=== PATIENT | female | born 1975 | race Caucasian/White ===

== ENCOUNTER → 2017-06-25 | Outpatient (CLI) | payer BC ==
--- NOTE | 2017-06-25 15:51 | MAMMOGRAPHY REPORT ---
BILATERAL DIGITAL SCREENING MAMMOGRAM TOMOSYNTHESIS WITH CAD: 06/25/2017 CLINICAL HISTORY: Routine screening. Patient has no complaints. TECHNIQUE: Breast tomosynthesis in addition to standard 2D mammography was performed. Current study was also evaluated with a Computer Aided Detection (CAD) system. COMPARISON: Comparison is made to exams dated: 03/15/2016 mammogram, 03/12/2015 mammogram, and 2013 mammogram - [facility]. BREAST COMPOSITION: The tissue of both breasts is heterogeneously dense, which may obscure small mas ses. FINDINGS: No suspicious masses, calcifications, or areas of architectural distortion are noted in ei ther breast. There has been no significant interval change compared to prior exams. IMPRESSION: ACR BI-RADS CATEGORY 1: NEGATIVE There is no mammographic evidence of malignancy. A 1 year screening mammogram is recommended. The pa tient will receive written notification of the results. Approximately 10% of breast cancers are not detected with mammography. A negative mammographic report should not delay biopsy if a clinically suggestive mass is present. Kerri Nicolas M.D. ah/:06/25/2017 14:14:23 Certified Nurse: Estefania KING(R)(M), [facility] letter sent: Normal 1/2 BI-RADS Code: ACR BI-RADS Category 1: Negative
== END | disposition home or self-care (01) ==
LOC: C.MAMM 08:51
PROVIDERS: ATTEND Nurse Practitioner Obstetrics & Gynecology
DX: Z12.31 Encounter for screening mammogram for malignant neoplasm of breast (principal)

== ENCOUNTER 2024-10-02 08:45 | Inpatient (IN) ==
[2024-10-02] MEDS: SODIUM CHLORIDE 0.9% 1,000 ML IV ONE (09:44)
[2024-10-02] MEDS: ONDANSETRON INJ 2 MG/ML 2 ML VIAL IV STA (09:45)
[2024-10-02 09:48] LABS: Hematocrit (blood only) 52.4 % (37.0-47.0); Hemoglobin 18.3 g/dl (12.0-16.0); Mean Corpuscular Hemoglobin 29.9 pg (25.0-34.0); Mean Corpuscular Hgb Conc 34.9 g/dL (32.0-36.0); Mean Corpuscular Volume 85.5 fL (80.0-100.0); Mean Platelet Volume 9.1 fL (9.4-12.4); Platelet Count 533 K/uL (130-400); RDW Coefficient of Variation 12.4 % (11.5-14.5); RDW Standard Deviation 38.1 fL (36.4-46.3); Red Blood Count 6.13 M/uL (4.20-5.40)
[2024-10-02] MEDS: MoRPHine SULFATE 4 MG/ML 1 ML CARP\\VIAL IV STA (09:52)
[2024-10-02] MEDS: FAMOTIDINE 20MG IV PUSH 20 MG/5 ML SYR IV STA (09:54)
[2024-10-02] MEDS: ACETAMINOPHEN 1,000 MG/100 ML VIAL IV STA (09:55)
[2024-10-02 10:17] LABS: Albumin Globulin Ratio 1.4 (0.9-2); BUN Creatinine Ratio 13.8 (10-20); Bilirubin,Total 0.9 mg/dl (0.2-1.0); Calcium 11.4 mg/dl (8.6-10.3); Creatinine Clr Calc Pharmacy 53.4 ml/min; Globulin 3.7 gm/dl (2.5-4.0); Potassium 4.2 mmol/L (3.5-5.1); Total Protein 8.7 gm/dl (6.0-8.3)
[2024-10-02] MEDS: OPTIRAY 320 100ml IV ONE (10:39)
--- NOTE | 2024-10-02 10:54 | CT Scan Report ---
CT SCAN OF THE ABDOMEN AND PELVIS WITH IV CONTRAST CLINICAL HISTORY: Abdominal pain, nausea and vomiting. COMPARISON STUDY: None. TECHNIQUE: Following the IV administration of 94 cc of Optiray 320, CT scan of the abdomen and pelvi s is performed from the lung bases to the proximal femora. Images are reviewed in the axial, sagittal , and coronal planes. IV contrast was administered without complication. A dose lowering technique wa s utilized adhering to the principles of ALARA. CT DOSE: 1012.15 mGy.cm FINDINGS: Lung bases: The size of the heart is normal. There is no pericardial effusion. The lung bases are angie ar. Liver: The liver morphology is normal and there are no hepatic lesions. There is mild biliary ductal dilatation likely related to cholecystectomy. The hepatic veins and portal veins are patent. Gallbladder: Surgically absent. Spleen: Normal in size and attenuation. Pancreas: There are no pancreatic lesions. No pancreatic ductal dilatation is present. Adrenal glands: Unremarkable. Kidneys: There are no renal lesions. There is no hydronephrosis. The kidneys enhance symmetrically. Abdominal vasculature: The caliber of the abdominal aorta is normal. Major vasculature is patent. Bowel: There are numerous loops of mildly dilated fluid-filled small bowel. Transition point within t he distal ileum, within the left lower quadrant on image 224 of 365 is noted. There is associated mes enteric stranding and a small amount of associated interloop fluid and ascites. Terminal ileum is dec ompressed. There is multifocal wall thickening with prominent mucosal enhancement within the terminal ileum. No evidence for acute appendicitis. Peritoneum: There is no intraperitoneal free air. Lymphadenopathy: None. Skeletal structures: No lytic or blastic lesions are seen. IMPRESSION: Findings consistent with a small bowel obstruction with transition point within the dista l ileum, as described above. Associated mesenteric stranding and ascites. No free air, pneumatosis or portal venous gas. Multifocal wall thickening with prominent mucosal enhancement within the terminal ileum. Although possibly due to underdistended bowel distal to the transition point, this favors a n onspecific enteritis. ACT 112: Negative or not required by law. Electronically signed by: Gilberto Valdez M.D. 10/02/2024 10:52 AM
[2024-10-02 11:47] LABS: Basophils # (auto) 0.09 K/uL (0.00-0.20); Basophils % (auto) 0.3 %; Eosinophils # (auto) 0.03 K/uL (0.00-0.50); Eosinophils % (auto) 0.1 %; Immature Granulocytes # (auto) 0.15 K/uL (0.01-0.20); Immature Granulocytes % (auto) 0.6 %; Lymphocytes # (auto) 2.77 K/uL (1.20-3.40); Lymphocytes % (auto) 10.6 %; Monocytes # (auto) 1.29 K/uL (0.11-0.59); Monocytes % (auto) 4.9 %; Neutrophils # (auto) 21.87 K/uL (1.40-6.50); Neutrophils % (auto) 83.5 %
[2024-10-02] MEDS ORDERED: MoRPHine SULFATE 4 MG/ML 1 ML CARP\\VIAL IV PRN ×2 (11:57→14:15)
--- NOTE | 2024-10-02 12:00 | Emergency Department Note ---
Impression & Plan Abdominal pain, Small bowel obstruction, Nausea & vomiting ED Provider Note ED Provider Note NAME: PUNEET STACK AGE:48 SEX: Female : 1975 ARRIVES VIA: Private vehicle INFORMANT: Patient ED PROVIDER(s): Berta Evans DO CHIEF COMPLAINT: Abdominal pain, vomiting HPI: This is a 48-year-old female who presents to the emergency department due to concern for abdominal pain and nausea and vomiting. She states pain began around 1 AM and woke her up from sleep. She states she would have a baseline dull pain with intermittent spasms every 3 to 4 minutes of a sharper pain. She began having nausea and then episodes of vomiting additionally. She has had sweating and chills with the vomiting no overt fevers. She denies any recent change in diet or medication. She does have a prior history of a bowel obstruction and states this feels similar. She denies any accompanying chest pain or shortness of breath. No recent change in urine or stools. She states she feels bloated. PAST MEDICAL HISTORY:See Below PAST SURGICAL HISTORY:See Below FAMILY HISTORY:See Below SOCIAL HISTORY:See Below HOME MEDICATIONS:See Below ALLERGIES:See Below VITALS:See Below PHYSICAL EXAMINATION: GENERAL: alert, well appearing, well nourished, no distress, non-toxic EYE EXAM: normal conjunctiva, PERRL and EOM's grossly intact OROPHARYNX: no exudate, no erythema, lips, buccal mucosa, and tongue normal and mucous membranes are moist NECK: supple, no nuchal rigidity, no adenopathy, non-tender LUNGS: Clear to auscultation. Normal chest wall mechanics, no w/r/r HEART: no murmurs, S1 normal and S2 normal ABDOMEN: abdomen soft, non-tender, normo-active bowel sounds, no masses, no rebound or guarding. SKIN: no rashes, petechiae, orbruising UPPER EXTREMITIES: upper extremities are grossly normal. FROM, nml pulses b/l. LOWER EXTREMITIES: No pitting edema. FROM, nml pulses b/l. NEURO EXAM: Normal sensorium, cranial nerves II-XII grossly intact, normal speech, no facial droop,nogross weakness of arms, no gross weakness of legs. Gross sensation intact. No ataxia. Vital Signs: reviewed and remarkable Differential Diagnosis: sbo, perf, gi bleed, colitis, viral syndrome, ureterolithiasis, gastritis, AAA, ACS, diverticulitis, as well as others were considered MEDICAL DECISION MAKING: This is a 48-year-old female who presents emergency department due to concern for abdominal pain, nausea and vomiting. Patient reported symptoms feel similar to her prior bowel obstruction. She was afebrile and hemodynamically stable. Labs drawn and sent, IV established, patient monitored on telemetry. She was started on IV fluids and given IV Tylenol, IV Zofran, and IV morphine for symptomatic control. She was sent for CT of the abdomen pelvis which did confirm small bowel obstruction with transition point in the left lower quadrant. Patient markedly improved following medications and all results discussed with her at bedside. I discussed the case with on-call general surgery via [facility] text [facility] and [facility]. Consultation(s): 1208: [facility] Pol[facility] for additional [facility] and management. 1210: Discussed with general surgery via [facility]ert text, consult placed. ER Treatment Provided: See below Diagnostics Interpreted By Me: -Cardiac Monitoring: An order was placed for continuous cardiac monitoring. The monitor shows a rate of 58 with sinus bradycardia rhythm. -Laboratory studies: As stated above and show below. -Imaging studies: CT a/p - +sbo, no perf Triage Nursing Note Reviewed Prior/Outside Records Reviewed Past Med/Surg History Problem List (Updated 10/02/24 @ 11:59 by Berta Evans DO) Nausea & vomiting (Acute) Small bowel obstruction (Acute) Abdominal pain (Acute) Breast cancer screening other than mammogram Family history of breast cancer Heterogeneously dense tissue of both breasts on mammography Hyperhidrosis History of small bowel obstruction History of cyst of breast Medical History History of intestinal obstruction History of COVID-19 Surgical History Family history of reaction to anesthesia Nausea and vomiting after administration of anesthetic agent History of endometrial ablation History of bilateral tubal ligation History of cholecystectomy History of tooth extraction Family History Grandmother (Maternal) Diabetes Dementia Mother Dementia Grandfather (Maternal) Alzheimer disease Other Breast cancer Denies family history of Ovarian cancer Prostate cancer Myocardial infarction Colorectal cancer Social History Smoking Status: Never smoker Second Hand Exposure: Yes (IN THE PAST A CHILD); Do You Dip or Chew Tobacco: No; Hx Alcohol Use: Yes Alcohol type: beer and wine Hx Substance Use: No Preferred Language: Armenian Communication Ability: Effective Cash Applications Clerk Required: No Beliefs That Will Affect Care: None marital status: Current Living Situation: Spouse current occupational status: employed 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 [employer] Feels Safe at Home: Yes Childhood Exposure to Second-Hand Smoke: Yes Dental Care, Regularly: Yes Physical Activity Frequency: 3-4 Times per Week Seatbelt Use: always Sunscreen Use: Yes Assistive Devices: None Allergies Allergies Allergy/AdvReac Type Severity Reaction Status Date / Time adhesive tape AdvReac Mild SKIN Verified 07/09/24 13:47 REACTION codeine AdvReac Mild N/V Verified 07/09/24 13:47 Home Meds Home Medications Medication Instructions Recorded Confirmed multivitamin 1 tab PO 3XWK 06/29/22 10/02/24 Previous Rx's Medication Instructions Recorded aluminum chloride 20 % topical 1 applic topical DAILY #37.5 mL 05/16/23 solution (Drysol) drospirenone (contraceptive) 4 mg 1 tab PO QAM #84 tabs 07/09/24 (28) tablet (Slynd) Results & Data (ED) Vital Signs Vital Signs - 24 hr 10/02/24 08:55 10/02/24 09:15 10/02/24 09:59 Temperature 36.0 C L Temperature Source Temporal Artery Scan Pulse Rate 110 H 96 H Pulse Rate [Right Finger] 80 Respiratory Rate 20 18 Respiratory Effort / Characteristics Non-Labored Spontaneous Non-Labored Spontaneous Respiratory Depth Normal Normal Respiratory Pattern Regular Regular Blood Pressure 125/85 Blood Pressure [Right Arm] 147/91 H Blood Pressure Mean 98 Blood Pressure Mean [Right Arm] 109 Pulse Oximetry 99 95 Oxygen Delivery Method Room Air Room Air Sepsis Recent Fever Within 48 Hours No Sepsis New/Unexplained Change in Mental Status N/A Sepsis Action Taken by Nursing No Action Required Laboratory Data 10/03/24 07:23 10/03/24 07:23 Lab Results 10/02/24 Range/Units 09:10 WBC 26.20 H (4.8-10.8) K/ul RBC 6.13 H (4.20-5.40) M/uL Hgb 18.3 H (12.0-16.0) g/dl Hct 52.4 H (37.0-47.0) % MCV 85.5 (80.0-100.0) fL MCH 29.9 (25.0-34.0) pg MCHC 34.9 (32.0-36.0) g/dL RDW Std Deviation 38.1 (36.4-46.3) fL RDW Coeff of Priyank 12.4 (11.5-14.5) % Plt Count 533 H (130-400) K/uL MPV 9.1 L (9.4-12.4) fL Immature Gran % (Auto) 0.6 % Neut % (Auto) 83.5 % Lymph % (Auto) 10.6 % Motley % (Auto) 4.9 % Eos % (Auto) 0.1 % Baso % (Auto) 0.3 % Neut # (Auto) 21.87 H (1.40-6.50) K/uL Lymph # (Auto) 2.77 (1.20-3.40) K/uL Motley # (Auto) 1.29 H (0.11-0.59) K/uL Eos # (Auto) 0.03 (0.00-0.50) K/uL Baso # (Auto) 0.09 (0.00-0.20) K/uL Immature Gran # (Auto) 0.15 (0.01-0.20) K/uL Sodium 139 (136-145) mmol/L Potassium 4.2 (3.5-5.1) mmol/L Chloride 99 (98-107) mmol/L Carbon Dioxide 27 (21-32) mmol/L Anion Gap 13 H (3-11) BUN 15 (6-23) mg/dl Creatinine 1.09 (0.6-1.2) mg/dl Est Cr Clr Drug Dosing 53.4 ml/min eGFR 61.89 BUN/Creatinine Ratio 13.8 (10-20) Glucose 174 H (70-99(Fasting)) mg/dl Calcium 11.4 H (8.6-10.3) mg/dl Total Bilirubin 0.9 (0.2-1.0) mg/dl AST 28 (13-39) U/L ALT 25 (7-52) U/L Alkaline Phosphatase 98 (34-104) U/L Total Protein 8.7 H (6.0-8.3) gm/dl Albumin 5.0 (3.4-5.0) gm/dl Globulin 3.7 (2.5-4.0) gm/dl Albumin/Globulin Ratio 1.4 (0.9-2) Lipase 18 (11-82) U/L Administered Medications Enoxaparin Sodium (Enoxaparin Inj 40 Mg/0.4 Ml Syr) 40 mg SQ Q24H [facility] Stop: 11/01/24 14:29 Last Admin: 10/03/24 16:10 Dose: 40 mg Documented By: Admin: 10/02/24 16:52 Dose: 40 mg Documented By: KATT Lactated Ringer's (Lr) 1,000 mls @ 80 mls/hr IV .[id number] [facility] Stop: 10/05/24 12:59 Last Admin: 10/03/24 11:52 Dose: 125 mls/hr Documented By: Infusion: 10/03/24 11:45 Dose: Infused Documented By: Admin: 10/03/24 03:45 Dose: 125 mls/hr Documented By: Infusion: 10/03/24 03:30 Dose: Infused Documented By: Admin: 10/02/24 19:30 Dose: 125 mls/hr Documented By: Infusion: 10/02/24 19:30 Dose: Infused Documented By: Admin: 10/02/24 13:05 Dose: 125 mls/hr Documented By: Acetaminophen (Ofirmev) 1,000 mg in 100 mls @ 400 mls/hr IV Q8H PRN PRN Reason: pain/fever, first line Stop: 10/05/24 16:59 Last Infusion: 10/03/24 08:06 Dose: Infused Documented By: Admin: 10/03/24 07:25 Dose: 400 mls/hr Documented By: Infusion: 10/02/24 21:03 Dose: Infused Documented By: Admin: 10/02/24 19:30 Dose: 400 mls/hr Documented By: JOEL Discontinued Medications Sodium Chloride (Nss) 1,000 mls @ 999 mls/hr IV .Q1H1M ONE Stop: 10/02/24 10:35 Last Infusion: 10/02/24 12:08 Dose: Infused Documented By: Admin: 10/02/24 09:44 Dose: 999 mls/hr Documented By: MR Famotidine (Pepcid 20mg Iv Push) 20 mg in 5 mls @ 2.5 mls/min IV NOW STA Stop: 10/02/24 09:36 Last Admin: 10/02/24 09:54 Dose: 2.5 mls/min Documented By: MR Acetaminophen (Ofirmev) 1,000 mg in 100 mls @ 400 mls/hr IV NOW STA Stop: 10/02/24 09:49 Last Infusion: 10/02/24 10:43 Dose: Infused Documented By: Admin: 10/02/24 09:55 Dose: 400 mls/hr Documented By: MR Sodium Chloride (Nss) 1,000 mls @ 125 mls/hr IV .Q8H [facility]ANNA[facility] Stop: 10/05/24 11:29 Last Infusion: 10/02/24 12:58 Dose: Infused Documented By: Admin: 10/02/24 12:37 Dose: 125 mls/hr Documented By: Ioversol (Optiray 320 100ml) 94 ml IV ONCE ONE Stop: 10/02/24 10:39 Last Admin: 10/02/24 10:39 Dose: 94 ml Documented By: SELMA Morphine Sulfate (Morphine Sulfate 4 Mg/Ml 1 Ml Carp\Vial) 4 mg IV NOW STA Stop: 10/02/24 09:36 Last Admin: 10/02/24 09:52 Dose: 4 mg Documented By: Ondansetron HCl (Ondansetron Inj 2 Mg/Ml 2 Ml Vial) 4 mg IV NOW STA Stop: 10/02/24 09:36 Last Admin: 10/02/24 09:45 Dose: 4 mg Documented By: MR Imaging Data Radiologist's Impression: Abdomen/Pelvis CT 10/02/24 09:35 CT SCAN OF THE ABDOMEN AND PELVIS WITH IV CONTRAST CLINICAL HISTORY: Abdominal pain, nausea and vomiting. COMPARISON STUDY: None. TECHNIQUE: Following the IV administration of 94 cc of Optiray 320, CT scan of the abdomen and pelvis is performed from the lung bases to the proximal femora. Images are reviewed in the axial, sagittal, and coronal planes. IV contrast was administered without complication. A dose lowering technique was utilized adhering to the principles of ALARA. CT DOSE: 1012.15 mGy.cm FINDINGS: Lung bases: The size of the heart is normal. There is no pericardial effusion. The lung bases are clear. Liver: The liver morphology is normal and there are no hepatic lesions. There is mild biliary ductal dilatation likely related to cholecystectomy. The hepatic veins and portal veins are patent. Gallbladder: Surgically absent. Spleen: Normal in size and attenuation. Pancreas: There are no pancreatic lesions. No pancreatic ductal dilatation is present. Adrenal glands: Unremarkable. Kidneys: There are no renal lesions. There is no hydronephrosis. The kidneys enhance symmetrically. Abdominal vasculature: The caliber of the abdominal aorta is normal. Major vasculature is patent. Bowel: There are numerous loops of mildly dilated fluid-filled small bowel. Transition point within the distal ileum, within the left lower quadrant on image 224 of 365 is noted. There is associated mesenteric stranding and a small amount of associated interloop fluid and ascites. Terminal ileum is decompressed. There is multifocal wall thickening with prominent mucosal enhancement within the terminal ileum. No evidence for acute appendicitis. Peritoneum: There is no intraperitoneal free air. Lymphadenopathy: None. Skeletal structures: No lytic or blastic lesions are seen. IMPRESSION: Findings consistent with a small bowel obstruction with transition point within the distal ileum, as described above. Associated mesenteric stranding and ascites. No free air, pneumatosis or portal venous gas. Multifocal wall thickening with prominent mucosal enhancement within the terminal ileum. Although possibly due to underdistended bowel distal to the transition point, this favors a nonspecific enteritis. ACT 112: Negative or not required by law. Electronically signed by: Gilberto Valdez M.D. 10/02/2024 10:52 AM Discharge Plan Visit Data Chief Complaint: Abdominal Pain Stated Complaint: BILE (BOWEL) OBSTRUCTION, VOMITING ED Provider: Berta Evans Discharge Problem: Abdominal pain, Small bowel obstruction, Nausea & vomiting Patient Disposition: Admitted As Inpatient Condition: Fair Discharge Instructions Interventions: ED Discharge Assessment Last Done: 10/02/24 13:59
--- NOTE | 2024-10-02 12:20 | History & Physical Report ---
Date of Service October 02, 2024 Assessment & Plan (1) Small bowel obstruction: Plan: 48-year-old female the past medical history of cholecystectomy and tubal ligation and multiple episodes of SBO who presents with recurrent nausea/vomiting/abdominal pain identical to prior bowel obstructions. She is found to have an SBO with transition point on CT. Is admitted for medical management of SBO with surgical consultation. SBO CTA/P: SBO with transition point. No evidence of perforation/abscess/free air. Enteritis versus bowel decompression distal to transition point Suspect adhesional with history of cholecystectomy and tubal ligation At bedside bowel sounds are near absent/diminished. Pain/nausea improved with initial ER medications. Remains with some discomfort but nausea has resolved. No rigidity/guarding Stomach is not overly distended. Did discuss NGT to LIS. Prefers to defer for now however if she has any recurrent nausea/vomiting agrees to placing NGT to low intermittent suction Continue Zofran, Tylenol IV, scale morphine for breakthrough pain IV FM while NPO Surgery consulted Marked leukocytosis of 26.2 however this has no granulocytic left shift, she is afebrile, and has not felt sick prior to her symptoms consistent with prior SBO's which developed last night. She has had multiple episodes of vomiting, suspect that this is demargination. Follow fever curve. If deteriorating clinical status then can start Zosyn at that point. Dysmenorrhea S/p endometrial ablation 8 years ago. Is on drospirenone for bleeding suppression, has had spotting when this has been missed Currently n.p.o. Hold Slynd while n.p.o. DVT prophylaxis: Lovenox Disposition: MSO CODE STATUS: Full code Diet: N.p.o., IV FM (2) Nausea & vomiting: History of Present Illness Primary Care Provider: Kaylah Villa DO Jasmyne is a 48-year-old female with a past medical history of SBO, tubal ligation, cholecystectomy, endometrial ablation, hyperhidrosis who presents to the ER with abdominal pain/nausea/vomiting beginning evening prior. Symptoms feel similar to her prior bowel obstructions. On ER evaluation CTA/P shows small bowel obstruction with transition point within the distal ileum, associated mesenteric stranding and ascites, no free air/pneumatosis/portal gas noted. Multifocal wall thickening and enhancement of the terminal ileum which may represent enteritis versus under distended distal bowel. Marked leukocytosis of 26 with neutrophilic predominance but no granulocytic left shift. No KORI is present. Has a history of colonoscopy 06/2022 which showed nonbleeding internal hemorrhoids, no other abnormalities. Jasmyne reports she is here for a recurrent bowel obstruction She knew right away what is was after dinner and felt 'just too full' lik ewith prior obstructions. [place] very full overnight, with a harder belly than normal and 2-3 pain with intermitting waves of 23/10 pain once and a while. Went to be d, but continued to have pain, nausea overnight. Got up out of bed 1-3am due to symptoms and felt poorly. Started vomiting at 6am, threw up 3 times at home, once in the car, once in the triage office, and once here. Feels much better since getting morphine, fluids, and zofran. Feels identical to past SBOs. Last one was a year or two ago in November and was able to ride it out at home with NPO --> fluids without coming to the hospital. year prior to that did need to be hospitalized for symptoms identical to this which took 3 day sto resolve. Has had some 'lesser waves' many times where she feels full for a prolonged period, but passes with rest at home. Has not noticed any particular triggers. First SBO was even prior her her cholecystectomy Had a cholecystectomy in 2013, but she thinks she may have had SBO sx prior to this. Had had a hx of tubal ligation in 1997. No history of bowel surgery. No diarrhea/illness prior ot this Last gas/flatus last night Last DM was very small 5/8 2am, last normal BM yesterday morning. No blood/melena. Denies other medical problems. - Takes drosperinone. Takes other medicals No hx of FL, no hx CKD, no history DM, no history of gestational DM, no hx strokes or blood clots Medical History: Reviewed Medications: Reviewed Surgical History: Reviewed Family history: Reviewed Allergies: Reviewed. Allergic to codeine --> nausea. NKDA. Social History: No tobacco product use. ETOH rare social use. Code Status: Parker Luevano [phone] would be surrogate DM. Full Code BS Diminished. Umbilical TTP, epigastric . Allergies Allergy/AdvReac Type Severity Reaction Status Date / Time adhesive tape AdvReac Mild SKIN Verified 07/09/24 13:47 REACTION codeine AdvReac Mild N/V Verified 07/09/24 13:47 Home Medications Medication Instructions Recorded Confirmed Type multivitamin 1 tab PO 3XWK 06/29/22 10/02/24 History aluminum chloride 20 % topical 1 applic topical DAILY #37.5 mL 05/16/23 10/02/24 Rx solution (Drysol) drospirenone (contraceptive) 4 mg 1 tab PO QAM #84 tabs 07/09/24 10/02/24 Rx (28) tablet (Slynd) Past Med/Surg History Problem List (Updated 10/02/24 @ 11:59 by Berta Evans DO) Nausea & vomiting (Acute) Small bowel obstruction (Acute) Abdominal pain (Acute) Breast cancer screening other than mammogram Family history of breast cancer Heterogeneously dense tissue of both breasts on mammography Hyperhidrosis History of small bowel obstruction History of cyst of breast Medical History History of intestinal obstruction History of COVID-19 Surgical History Family history of reaction to anesthesia Nausea and vomiting after administration of anesthetic agent History of endometrial ablation History of bilateral tubal ligation History of cholecystectomy History of tooth extraction Family History Grandmother (Maternal) Diabetes Dementia Mother Dementia Grandfather (Maternal) Alzheimer disease Other Breast cancer Denies family history of Ovarian cancer Prostate cancer Myocardial infarction Colorectal cancer Social History Smoking Status: Never smoker Second Hand Exposure: Yes (IN THE PAST A CHILD); Do You Dip or Chew Tobacco: No; Hx Alcohol Use: Yes Alcohol type: beer and wine Hx Substance Use: No Preferred Language: Taiwanese Motor Vehicle Or Caravan Salesperson Required: No Beliefs That Will Affect Care: None marital status: Current Living Situation: Spouse and Family current occupational status: employed 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 NAD. Cooperative. HEENT: Atraumatic, normocephalic. Vision and hearing grossly intact Pulm: CTAB A&P. -wheezes, -rales, -rhonchi. Symmetrical chest rise. No increased work of breathing. No respiratory distress. Cardiac: RRR, -mrg. Radial pulses intact and symmetrical. Abdominal: Distended, tender at the epigastrium and umbilicus. No rebound/involuntary guarding. Bowel sounds near absent Results & Data Results & Data Vital Signs (Past 12 Hours) Vital Signs Temp Pulse Pulse Resp BP BP Pulse Ox 10/02/24 09:59 80 18 147/91 H 95 10/02/24 09:15 96 H 10/02/24 08:55 36.0 C L 110 H 20 125/85 99 O2 Del Method 10/02/24 09:59 Room Air 10/02/24 09:15 10/02/24 08:55 Room Air PG Care Time/CCT Total # of Minutes Spent Total Time Spent with Patient: Total time spent is greater than 50% in coordination of care (as documented) at patient's floor/unit and/or counseling patient: Coding Level of Care Code 53151 INT INP/OBS CARE 3/75MIN Diagnoses Small bowel obstruction K56.609 Nausea & vomiting R11.2
[2024-10-02] MEDS: SODIUM CHLORIDE 0.9% 1,000 ML IV SCH (12:37)
[2024-10-02] MEDS: LACTATED RINGER'S 1,000 ML IV SCH (13:05)
[2024-10-02 13:32] LABS: Appearance Urine Clear (Clear); Bacteria Urine Automated 1+ (None Seen); Bilirubin Urine Negative (Negative); Blood Urine Negative (Negative); Cast Urine Automated 0-2 /lpf (0-2); Color Urine Yellow; Epithelial Cell Urine Auto 0-2 /hpf (0-2); Glucose Urine UA Negative (Negative); Ketones Urine Trace (Negative); Leukocyte Esterase Urine Negative (Negative); Nitrite Urine Negative (Negative); Protein Urine 1+ (Negative); Specific Gravity Urine > 1.045 (1.000-1.030); Urobilinogen Urine Negative (Negative); WBC Urine Automated 0-5 /hpf (0-5)
--- NOTE | 2024-10-02 13:47 | Surgery Consultation ---
Date of Consultation October 02, 2024 Assessment & Plan (1) Nausea & vomiting: (2) Small bowel obstruction: (3) Abdominal pain: 48 yo female with sudden onset of abdominal pain, nausea and vomiting that started last evening. History of SBO in past treated conservatively. likely secondary to adhesions. Leukocytosis but likely due to vomiting. No fevers. No peritonitis on examination, abdomen soft mildly distended with tenderness in RLQ. Recommend conservative management: npo for bowel rest, IV fluids, Pain management and antiemetics as needed, ambulation to increase GI motility. Advised NGT insertion if has another episode of vomiting. Discussed with Dr. Stewart who agrees with above. History of Present Illness Reason for Consultation: SBO Requesting Physician: Dr. Polanco Attending Physician: Dr. Polanco History of Present Illness Jasmyne is a 48 yo female who presented to ED with complaint of abdominal pain, nausea, and vomiting that started last evening. Multiple episodes of vomiting and pain is similar to prior SBO in the past. Was admitted to [facility] 4 years ago but believes she has had multiple SBOs treated at home with bowel rest. Has history of tubal ligation as well as laparoscopic cholecystectomy. No fevers or chills. no chest pain or shortness of breath. Feeling much better since receiving Zofran and Morphine. Nausea resolved. Feeling bloated. Pain in the mid to upper abdomen. Passed gas last night. No diarrhea. Allergies Allergy/AdvReac Type Severity Reaction Status Date / Time adhesive tape AdvReac Mild SKIN Verified 07/09/24 13:47 REACTION codeine AdvReac Mild N/V Verified 07/09/24 13:47 Home Medications Medication Instructions Recorded Confirmed Type multivitamin 1 tab PO 3XWK 06/29/22 10/02/24 History aluminum chloride 20 % topical 1 applic topical DAILY #37.5 mL 05/16/23 10/02/24 Rx solution (Drysol) drospirenone (contraceptive) 4 mg 1 tab PO QAM #84 tabs 07/09/24 10/02/24 Rx (28) tablet (Slynd) Patient History Medical History History of intestinal obstruction History of COVID-19 Surgical History Family history of reaction to anesthesia Nausea and vomiting after administration of anesthetic agent History of endometrial ablation History of bilateral tubal ligation History of cholecystectomy History of tooth extraction Family History Grandmother (Maternal) Diabetes Dementia Mother Dementia Grandfather (Maternal) Alzheimer disease Other Breast cancer Denies family history of Ovarian cancer Prostate cancer Myocardial infarction Colorectal cancer Social History Smoking Status: Never smoker Second Hand Exposure: Yes (IN THE PAST A CHILD); Do You Dip or Chew Tobacco: No; Hx Alcohol Use: Yes Alcohol type: beer and wine Hx Substance Use: No Preferred Language: Ethiopian Investment Officer Required: No Beliefs That Will Affect Care: None marital status: Current Living Situation: Spouse and Family current occupational status: employed 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 [employer] Feels Safe at Home: Yes Childhood Exposure to Second-Hand Smoke: Yes Dental Care, Regularly: Yes Physical Activity Frequency: 3-4 Times per Week Seatbelt Use: always Sunscreen Use: Yes Assistive Devices: Contacts and Glasses Review of Systems Review of Systems: All systems reviewed & are unremarkable except as noted in HPI & below Physical Exam Constitutional: WD/WN, vitals as above cooperative and comfortable; no acute distress and not ill appearing Respiratory: normal respiratory effort, lungs clear to auscultation Cardiovascular: RRR, no murmur, no edema Gastrointestinal (Abdomen): Inspection/Auscultation: abdomen normal to inspection, + abdomen distended (mild) and + abdominal surgical scar (laparoscopic scars) Percussion/Palpation: + abdomen tender (RLQ on deep palpation) and abdomen soft; no guarding, abdomen not rigid and abdomen not firm Skin: no rashes, warm and dry Psychiatric: A+Ox3, euthymic affect Results & Data Vital Signs (Past 12 Hours) Vital Signs Temp Pulse Pulse Resp BP BP Pulse Ox 10/02/24 12:00 79 18 131/97 97 10/02/24 11:03 73 18 121/79 95 10/02/24 09:59 80 18 147/91 H 95 10/02/24 09:15 96 H 10/02/24 08:55 36.0 C L 110 H 20 125/85 99 O2 Del Method 10/02/24 12:00 Room Air 10/02/24 11:03 Room Air 10/02/24 09:59 Room Air 10/02/24 09:15 10/02/24 08:55 Room Air Laboratory Results 10/02/24 10/02/24 Range/Units 13:05 09:10 WBC 26.20 H (4.8-10.8) K/ul RBC 6.13 H (4.20-5.40) M/uL Hgb 18.3 H (12.0-16.0) g/dl Hct 52.4 H (37.0-47.0) % MCV 85.5 (80.0-100.0) fL MCH 29.9 (25.0-34.0) pg MCHC 34.9 (32.0-36.0) g/dL RDW Std Deviation 38.1 (36.4-46.3) fL RDW Coeff of Priyank 12.4 (11.5-14.5) % Plt Count 533 H (130-400) K/uL MPV 9.1 L (9.4-12.4) fL Immature Gran % (Auto) 0.6 % Neut % (Auto) 83.5 % Lymph % (Auto) 10.6 % Davison % (Auto) 4.9 % Eos % (Auto) 0.1 % Baso % (Auto) 0.3 % Neut # (Auto) 21.87 H (1.40-6.50) K/uL Lymph # (Auto) 2.77 (1.20-3.40) K/uL Davison # (Auto) 1.29 H (0.11-0.59) K/uL Eos # (Auto) 0.03 (0.00-0.50) K/uL Baso # (Auto) 0.09 (0.00-0.20) K/uL Immature Gran # (Auto) 0.15 (0.01-0.20) K/uL Sodium 139 (136-145) mmol/L Potassium 4.2 (3.5-5.1) mmol/L Chloride 99 (98-107) mmol/L Carbon Dioxide 27 (21-32) mmol/L Anion Gap 13 H (3-11) BUN 15 (6-23) mg/dl Creatinine 1.09 (0.6-1.2) mg/dl Est Cr Clr Drug Dosing 53.4 ml/min eGFR 61.89 BUN/Creatinine Ratio 13.8 (10-20) Glucose 174 H (70-99(Fasting)) mg/dl Calcium 11.4 H (8.6-10.3) mg/dl Total Bilirubin 0.9 (0.2-1.0) mg/dl AST 28 (13-39) U/L ALT 25 (7-52) U/L Alkaline Phosphatase 98 (34-104) U/L Total Protein 8.7 H (6.0-8.3) gm/dl Albumin 5.0 (3.4-5.0) gm/dl Globulin 3.7 (2.5-4.0) gm/dl Albumin/Globulin Ratio 1.4 (0.9-2) Lipase 18 (11-82) U/L Urine Color Pending Urine Appearance Pending Urine pH Pending Ur Specific [place]rett Pending Urine Protein Pending Urine Glucose (UA) Pending Urine Ketones Pending Urine Blood Pending Urine Nitrite Pending Urine Bilirubin Pending Urine Urobilinogen Pending Ur Leukocyte Esterase Pending Diagnostic Findings CT SCAN OF THE ABDOMEN AND PELVIS WITH IV CONTRAST CLINICAL HISTORY: Abdominal pain, nausea and vomiting. COMPARISON STUDY: None. TECHNIQUE: Following the IV administration of 94 cc of Optiray 320, CT scan of the abdomen and pelvis is performed from the lung bases to the proximal femora. Images are reviewed in the axial, sagittal, and coronal planes. IV contrast was administered without complication. A dose lowering technique was utilized adhering to the principles of ALARA. CT DOSE: 1012.15 mGy.cm FINDINGS: Lung bases: The size of the heart is normal. There is no pericardial effusion. The lung bases are clear. Liver: The liver morphology is normal and there are no hepatic lesions. There is mild biliary ductal dilatation likely related to cholecystectomy. The hepatic veins and portal veins are patent. Gallbladder: Surgically absent. Spleen: Normal in size and attenuation. Pancreas: There are no pancreatic lesions. No pancreatic ductal dilatation is present. Adrenal glands: Unremarkable. Kidneys: There are no renal lesions. There is no hydronephrosis. The kidneys enhance symmetrically. Abdominal vasculature: The caliber of the abdominal aorta is normal. Major vasculature is patent. Bowel: There are numerous loops of mildly dilated fluid-filled small bowel. Transition point within the distal ileum, within the left lower quadrant on image 224 of 365 is noted. There is associated mesenteric stranding and a small amount of associated interloop fluid and ascites. Terminal ileum is decompressed. There is multifocal wall thickening with prominent mucosal enhancement within the terminal ileum. No evidence for acute appendicitis. Peritoneum: There is no intraperitoneal free air. Lymphadenopathy: None. Skeletal structures: No lytic or blastic lesions are seen. IMPRESSION: Findings consistent with a small bowel obstruction with transition point within the distal ileum, as described above. Associated mesenteric stranding and ascites. No free air, pneumatosis or portal venous gas. Multifocal wall thickening with prominent mucosal enhancement within the terminal ileum. Although possibly due to underdistended bowel distal to the transition point, this favors a nonspecific enteritis. I personally reviewed CT scan and concur with above findings.
[2024-10-02 13:48] LABS: RBC Urine Automated 0-2 /hpf (0-2)
[2024-10-02] MEDS ORDERED: ONDANSETRON INJ 2 MG/ML 2 ML VIAL IV PRN (14:15)
[2024-10-02] MEDS ORDERED: MoRPHine SULFATE 2 MG/ML CARP IV PRN (14:15)
[2024-10-02] MEDS: ENOXAPARIN INJ 40 MG/0.4 ML SYR SQ SCH (16:52)
[2024-10-02] MEDS: ACETAMINOPHEN 1,000 MG/100 ML VIAL IV PRN (19:30)
[2024-10-03 07:59] LABS: Basophils # (auto) 0.04 K/uL (0.00-0.20); Basophils % (auto) 0.4 %; Eosinophils # (auto) 0.21 K/uL (0.00-0.50); Eosinophils % (auto) 2.2 %; Hematocrit (blood only) 37.5 % (37.0-47.0); Hemoglobin 12.7 g/dl (12.0-16.0); Immature Granulocytes # (auto) 0.04 K/uL (0.01-0.20); Immature Granulocytes % (auto) 0.4 %; Lymphocytes # (auto) 3.15 K/uL (1.20-3.40); Lymphocytes % (auto) 32.4 %; Mean Corpuscular Hemoglobin 29.3 pg (25.0-34.0); Mean Corpuscular Hgb Conc 33.9 g/dL (32.0-36.0); Mean Corpuscular Volume 86.4 fL (80.0-100.0); Monocytes # (auto) 0.63 K/uL (0.11-0.59); Monocytes % (auto) 6.5 %; Neutrophils # (auto) 5.65 K/uL (1.40-6.50); Neutrophils % (auto) 58.1 %; Platelet Count 307 K/uL (130-400); RDW Coefficient of Variation 12.5 % (11.5-14.5); RDW Standard Deviation 39.6 fL (36.4-46.3); Red Blood Count 4.34 M/uL (4.20-5.40); White Blood Count 9.72 K/ul (4.8-10.8)
[2024-10-03 08:07] LABS: BUN Creatinine Ratio 19.2 (10-20); Calcium 8.1 mg/dl (8.6-10.3); Creatinine Clr Calc Pharmacy 79.7 ml/min; Potassium 3.8 mmol/L (3.5-5.1)
[2024-10-03 08:32] VITALS: TEMP 98.2
--- NOTE | 2024-10-03 10:10 | Hospitalist Progress Note ---
Date of Service October 03, 2024 Assessment & Plan (1) Small bowel obstruction: (2) Nausea & vomiting: Plan 48-year-old female the past medical history of cholecystectomy and tubal ligation and multiple episodes of SBO who presents with recurrent nausea/vomiting/abdominal pain identical to prior bowel obstructions. She is found to have an SBO with transition point on CT. Is admitted for medical management of SBO with surgical consultation. SBO CTA/P: SBO with transition point. No evidence of perforation/abscess/free air. Enteritis versus bowel decompression distal to transition point Suspect adhesional with history of cholecystectomy and tubal ligation Pain/nausea improved with initial ER medications. Remains with some discomfort but nausea has resolved. No rigidity/guarding Stomach is not overly distended. Did discuss NGT to LIS. Prefers to defer for now however if she has any recurrent nausea/vomiting agrees to placing NGT to low intermittent suction No additional episodes of vomiting; defer NG tube Continue Zofran, Tylenol IV, scale morphine for breakthrough pain Continue IV fluid maintenance Surgery consulted appreciated Marked leukocytosis of 26.2 on arrival (resolved); 9.72 on 10/03; will continue to defer Zosyn Trend CRP Given no recurrence of abdominal pain, will plan to trial sips of water/coffee; trial of clear liquids on the evening of 10/03 Dysmenorrhea S/p endometrial ablation 8 years ago. Is on drospirenone for bleeding suppression, has had spotting when this has been missed Hold Slynd while n.p.o. Headache Patient reports headache secondary to caffeine withdrawal on the morning of 10/03 IV acetaminophen as needed Small sips of coffee okay Supportive care DVT prophylaxis: Lovenox Disposition: MSO CODE STATUS: Full code Diet: N.p.o. with plan to advance to clear liquid diet on the evening of 10/03; continue IVF maintenance for now Admission and Anticipated Discharge Date Admission Date: October 02, 2024 Supervising Physician Co-Signing Physician Notes chart reviewed, case d/w Michael Farah PA-C - as above Subjective Mrs. Luevano reports she is feeling much better this morning. Her main complaint is caffeine withdrawal, which has been leading to a headache. She did receive Tylenol this morning, but this did not help with the headache. She reports no abdominal pain this morning; 0 out of 10. However, she does report her abdomen feels "sore", as if she did "500 sit ups". She attributes this to nausea and vomiting yesterday. No additional episodes of vomiting overnight. She does have a history of small bowel obstructions in the past, but reports that yesterday was the worst she is ever had it. History of 2 abdominal surgeries (tubal ligation in 1997, as well as cholecystectomy). Patient had a bowel movement yesterday evening while in the hospital, and is reporting that she is passing gas this morning. Her abdominal yesterday was liquidy, with a few solid parts; brown. No blood in the stool. No melena. ROS: Patient endorses sore stomach, and headache (which she attributes to caffeine withdrawal). Patient denies fever, chills, night sweats, dizziness/lightheadedness when getting up to the bathroom, changes in vision, chest pain, chest palpitations, SOB, abdominal pain, N/V, burning with urination, changes in urinary or bowel habits, or numbness tingling in the arms or legs (resolved yesterday). Review of Systems Review of Systems: HPI above Physical Exam Physical Exam: General: no acute distress; pleasant affect; non-toxic appearing; well- nourished; cooperative; SpO2 96% on RA HEENT: normocephalic, atraumatic; no scleral icterus; PERRLA; vision and hearing grossly intact Neck: supple; no lymphadenopathy; trachea midline Skin: warm, dry without signs of tenting; no cyanosis; no rashes, bruising, lesions, or erythema noted CV: chest wall NTP; RRR; S1/S2 normal; no murmurs/rubs/gallops; pulses intact and symmetric at radial, DP, and PT Lungs: no acute respiratory distress; symmetrical chest wall expansion; clear breath sounds across all lung nolasco w/o adventitious sounds; no wheezing ABD: Soft, he is NTP in all 4 quadrants, but does report some soreness/discomfort mainly in the right lower quadrant; BS present; no rebound/guarding; no distention; no rashes or bruising noted on the abdomen or flanks bilaterally MSK: no tics or fasciculations; no edema noted in the LEs b/l, nonerythematous; patient demonstrates ability to wiggle toes bilateral Neuro: A&Ox3; normal mood and affect; fluent speech; no focal deficits; sensation intact and symmetric in the LEs b/l Results & Data Results & Data Vital Signs (Past 12 Hours) Vital Signs Temp Pulse Resp BP Pulse Ox O2 Del Method 10/03/24 08:32 36.8 C 76 18 115/72 96 Room Air PG Care Time/CCT Total # of Minutes Spent Total Time Spent with Patient: Total time spent is greater than 50% in coordination of care (as documented) at patient's floor/unit and/or counseling patient: Coding [place] [address] SUB INP/OBS CARE 06/21MIN Patient Type Established Medical Decision Making Low Complexity Diagnoses Small bowel obstruction K56.609 Nausea & vomiting R11.2
[2024-10-03 10:37] LABS: C Reactive Protein 3.12 mg/dl (0-0.5)
--- NOTE | 2024-10-03 12:33 | Surgery Progress Note ---
Date of Service October 03, 2024 Assessment & Plan (1) Nausea & vomiting: (2) Small bowel obstruction: (3) Abdominal pain: Plan: 48 yo female with sudden onset of abdominal pain, nausea and vomiting that started last evening. History of SBO in past treated conservatively. likely secondary to adhesions. Leukocytosis but likely due to vomiting. No fevers. No peritonitis on examination, abdomen soft mildly distended with tenderness in RLQ. Recommend conservative management: npo for bowel rest, IV fluids, Pain management and antiemetics as needed, ambulation to increase GI motility. Advised NGT insertion if has another episode of vomiting. 10/03/2024 avss no abdominal pain small amount of flatus only no n,v Plan: Continue NPO for bowel rest for now, possibly sips of clears/black coffee this afternoon encouraged ambulating hallway to increase gi motility continue medical management [facility] surgery on for weekend Discussed with Dr. Stewart who agrees with above. Admission and Anticipated Discharge Date Admission Date: October 02, 2024 Subjective no abdominal pain, just feels sore from vomiting prior to admission no n,v headache due to lack of caffeine small amount of flatus but not much no bowel movement feels less bloated Physical Exam Constitutional: WD/WN, vitals as above cooperative and comfortable; no acute distress and not ill appearing Gastrointestinal (Abdomen): Inspection/Auscultation: abdomen normal to inspection; abdomen not distended Percussion/Palpation: + abdomen tender (mild in upper abdomen and RLQ on deep palpation) and abdomen soft; no guarding, abdomen not rigid and abdomen not firm Skin: no rashes, warm and dry Psychiatric: A+Ox3, euthymic affect Results & Data Vital Signs (Past 12 Hours) Vital Signs Temp Pulse Resp BP Pulse Ox O2 Del Method 10/03/24 08:32 36.8 C 76 18 115/72 96 Room Air Laboratory Results 10/03/24 10/02/24 Range/Units 07:23 13:05 WBC 9.72 D (4.8-10.8) K/ul RBC 4.34 (4.20-5.40) M/uL Hgb 12.7 D (12.0-16.0) g/dl Hct 37.5 (37.0-47.0) % MCV 86.4 (80.0-100.0) fL MCH 29.3 (25.0-34.0) pg MCHC 33.9 (32.0-36.0) g/dL RDW Std Deviation 39.6 (36.4-46.3) fL RDW Coeff of Priyank 12.5 (11.5-14.5) % Plt Count 307 (130-400) K/uL MPV 9.0 L (9.4-12.4) fL Immature Gran % (Auto) 0.4 % Neut % (Auto) 58.1 % Lymph % (Auto) 32.4 % [place] % (Auto) 6.5 % Eos % (Auto) 2.2 % Baso % (Auto) 0.4 % Neut # (Auto) 5.65 (1.40-6.50) K/uL Lymph # (Auto) 3.15 (1.20-3.40) K/uL [place] # (Auto) 0.63 H (0.11-0.59) K/uL Eos # (Auto) 0.21 (0.00-0.50) K/uL Baso # (Auto) 0.04 (0.00-0.20) K/uL Immature Gran # (Auto) 0.04 (0.01-0.20) K/uL Sodium 141 (136-145) mmol/L Potassium 3.8 (3.5-5.1) mmol/L Chloride 110 H (98-107) mmol/L Carbon Dioxide 26 (21-32) mmol/L Anion Gap 5 (3-11) BUN 14 (6-23) mg/dl Creatinine 0.73 D (0.6-1.2) mg/dl Est Cr Clr Drug Dosing 79.7 ml/min eGFR 100.13 BUN/Creatinine Ratio 19.2 (10-20) Glucose 97 (70-99(Fasting)) mg/dl Calcium 8.1 L D (8.6-10.3) mg/dl C-Reactive Protein 3.12 H (0-0.5) mg/dl Urine Color Yellow Urine Appearance Clear (Clear) Urine pH 7.0 (4.5-7.5) Ur Specific [place] > 1.045 H (1.000-1.030) Urine Protein 1+ H (Negative) Urine Glucose (UA) Negative (Negative) Urine Ketones Trace H (Negative) Urine Blood Negative (Negative) Urine Nitrite Negative (Negative) Urine Bilirubin Negative (Negative) Urine Urobilinogen Negative (Negative) Ur Leukocyte Esterase Negative (Negative) Urine WBC (Auto) 0-5 (0-5) /hpf Urine RBC (Auto) 0-2 (0-2) /hpf U Hyaline Cast (Auto) 0-2 (0-2) /lpf U Epithel Cells (Auto) 0-2 (0-2) /hpf Urine Bacteria (Auto) 1+ H (None Seen)
[2024-10-03 20:41] VITALS: RESP 18
[2024-10-04 06:42] LABS: Basophils # (auto) 0.04 K/uL (0.00-0.20); Basophils % (auto) 0.5 %; Eosinophils # (auto) 0.22 K/uL (0.00-0.50); Hemoglobin 12.5 g/dl (12.0-16.0); Immature Granulocytes # (auto) 0.02 K/uL (0.01-0.20); Immature Granulocytes % (auto) 0.3 %; Lymphocytes # (auto) 2.67 K/uL (1.20-3.40); Lymphocytes % (auto) 36.2 %; Mean Corpuscular Hemoglobin 29.4 pg (25.0-34.0); Mean Corpuscular Hgb Conc 33.8 g/dL (32.0-36.0); Mean Corpuscular Volume 87.1 fL (80.0-100.0); Monocytes # (auto) 0.57 K/uL (0.11-0.59); Monocytes % (auto) 7.7 %; Neutrophils # (auto) 3.85 K/uL (1.40-6.50); Neutrophils % (auto) 52.3 %; Platelet Count 282 K/uL (130-400); RDW Coefficient of Variation 11.9 % (11.5-14.5); RDW Standard Deviation 38.3 fL (36.4-46.3); Red Blood Count 4.25 M/uL (4.20-5.40); White Blood Count 7.37 K/ul (4.8-10.8)
[2024-10-04 07:01] LABS: BUN Creatinine Ratio 10.4 (10-20); C Reactive Protein 1.3 mg/dl (0-0.5); Calcium 8.3 mg/dl (8.6-10.3); Creatinine Clr Calc Pharmacy 86.9 ml/min; Potassium 3.7 mmol/L (3.5-5.1)
[2024-10-04 08:08] VITALS: BP 127/78; PULSE 72; O2SAT 96
--- NOTE | 2024-10-04 12:17 | Discharge Summary ---
Discharge Summary Date of Service October 04, 2024 Principal Dx & Hospital Course #1 = Principal Diagnosis (1) Small bowel obstruction: (2) Nausea & vomiting: Plan 48-year-old female the past medical history of cholecystectomy and tubal ligation and multiple episodes of SBO who presents with recurrent nausea/vomiting/abdominal pain identical to prior bowel obstructions. She is found to have an SBO with transition point on CT. Is admitted for medical management of SBO with surgical consultation. Day of discharge 10/04: Patient reports she is doing well this morning. She slept well, and tolerated her clear liquid diet well last night and this morning. No recurrence of abdominal pain. No nausea or vomiting. Overall, patient reports she feels much better than when she came in, and is eager to return home. She has had 4 bowel movements over the past 24 hours; soft stool/liquidy. Brown in color. No melena or blood in stool. ROS: Patient denies fever, chills, night sweats, dizziness/lightheadedness with walking, recurrence of headache, chest pain, SOB, cough, abdominal pain, N/V, blood in her urine or stool, or numbness or tingling the arms or legs. SBO CTA/P: SBO with transition point. No evidence of perforation/abscess/free air. Enteritis versus bowel decompression distal to transition point Suspect adhesional with history of cholecystectomy and tubal ligation Pain/nausea improved with initial ER medications. No abdominal discomfort or nausea at time of discharge. No rigidity/tenderness to palpation. Stomach is not overly distended. Did discuss NGT. Deferred as nausea/vomiting resolved on their own. No additional episodes of vomiting while in the hospital Zofran, Tylenol IV, scale morphine for breakthrough pain IVF maintenance Surgery consulted appreciated Marked leukocytosis of 26.2 on arrival (resolved); downtrended to 7.37 on 10/04; Zosyn deferred CRP down trended from 3.12 -> 1.30 Given no recurrence of abdominal pain, no recurrence of nausea/vomiting, and advancement to full liquid diet without setbacks, will plan to discharge patient home on 10/04 Dysmenorrhea S/p endometrial ablation 8 years ago. Is on drospirenone for bleeding suppression, has had spotting when this has been missed Restart Slynd Dispo: Safe to discharge home on full liquid diet for 1 to 2 days, with plans to advance to low fiber diet as tolerated. Admission HPI Per Admitting Provider Jasmyne is a 48-year-old female with a past medical history of SBO, tubal ligation, cholecystectomy, endometrial ablation, hyperhidrosis who presents to the ER with abdominal pain/nausea/vomiting beginning evening prior. Symptoms feel similar to her prior bowel obstructions. On ER evaluation CTA/P shows small bowel obstruction with transition point within the distal ileum, associated mesenteric stranding and ascites, no free air/pneumatosis/portal gas noted. Multifocal wall thickening and enhancement of the terminal ileum which may represent enteritis versus under distended distal bowel. Marked leukocytosis of 26 with neutrophilic predominance but no granulocytic left shift. No KORI is present. Has a history of colonoscopy 06/2022 which showed nonbleeding internal hemorrhoids, no other abnormalities. Jasmyne reports she is here for a recurrent bowel obstruction She knew right away what is was after dinner and felt 'just too full' lik ewith prior obstructions. Bryan very full overnight, with a harder belly than normal and 2-3 pain with intermitting waves of 23/10 pain once and a while. Went to bed, but continued to have pain, nausea overnight. Got up out of bed 1-3am due to symptoms and felt poorly. Started vomiting at 6am, threw up 3 times at home, once in the car, once in the triage office, and once here. Feels much better since getting morphine, fluids, and zofran. Feels identical to past SBOs. Last one was a year or two ago in November and was able to ride it out at home with NPO --> fluids without coming to the hospital. year prior to that did need to be hospitalized for symptoms identical to this which took 3 day sto resolve. Has had some 'lesser waves' many times where she feels full for a prolonged period, but passes with rest at home. Has not noticed any particular triggers. First SBO was even prior her her cholecystectomy Had a cholecystectomy in 2013, but she thinks she may have had SBO sx prior to this. Had had a hx of tubal ligation in 1997. No history of bowel surgery. No diarrhea/illness prior ot this Last gas/flatus last night Last DM was very small 5/8 2am, last normal BM yesterday morning. No blood/melena. Denies other medical problems. - Takes drosperinone. Takes other medicals No hx of [place], no hx CKD, no history DM, no history of gestational DM, no hx strokes or blood clots Medical History: Reviewed Medications: Reviewed Surgical History: Reviewed Family history: Reviewed Allergies: Reviewed. Allergic to codeine --> nausea. NKDA. Social History: No tobacco product use. ETOH rare social use. Code Status: Parker Luevano [phone] would be surrogate DM. Full Code BS Diminished. Umbilical TTP, epigastric . Admission Exam Per Admitting Provider General: A&Ox3. NAD. Cooperative. HEENT: Atraumatic, normocephalic. Vision and hearing grossly intact Pulm: CTAB A&P. -wheezes, -rales, -rhonchi. Symmetrical chest rise. No increased work of breathing. No respiratory distress. Cardiac: RRR, -mrg. Radial pulses intact and symmetrical. Abdominal: Distended, tender at the epigastrium and umbilicus. No rebound/involuntary guarding. Bowel sounds near absent Discharge Exam General: no acute distress; pleasant affect; non-toxic appearing; well- nourished; cooperative; SpO2 96% on RA HEENT: normocephalic, atraumatic; no scleral icterus; PERRLA; vision and hearing grossly intact Neck: supple; no lymphadenopathy; trachea midline Skin: warm, dry without signs of tenting; no cyanosis; no rashes, bruising, lesions, or erythema noted CV: chest wall NTP; RRR; S1/S2 normal; no murmurs/rubs/gallops; pulses intact and symmetric at radial, DP, and PT Lungs: no acute respiratory distress; symmetrical chest wall expansion; clear breath sounds across all lung nolasco w/o adventitious sounds; no wheezing ABD: Soft, NTP in all 4 quadrants; BS present; no rebound/guarding; no distention; no rashes or bruising noted on the abdomen or flanks bilaterally MSK: no tics or fasciculations; no edema noted in the LEs b/l, nonerythematous; patient demonstrates ability to wiggle toes bilateral Neuro: A&Ox3; normal mood and affect; fluent speech; no focal deficits; sensation intact and symmetric in the LEs b/l Discharge Plan Discharge Items Patient Disposition: Home - Self-Care Reason For Visit: SBO Discharge Diagnosis: Small bowel obstruction Condition on Discharge: Good Activity: As commented below Activity Comment: Gradually resume previous activity as tolerated Non-emergency contact: Primary Care Provider Call non-emergency contact if: you have any medication questions, your symptoms worsen, your pain is concerning for you and you have a fever Follow-up/Referrals: Kaylah Villa DO [Primary Care Provider] - Diet: Full liquid and Low Fiber Diet Comment: Full liquid diet x 1 to 2 days; slowly advance to low fiber as tolerated Addtl Attending Provider Instructions: You were hospitalized at [facility] on 10/02 for severe abdominal pain and vomiting. On arrival, imaging of your abdomen/pelvis revealed a small bowel obstruction. Given your history of small bowel obstructions/abdominal surgeries, it is likely that this was caused by abdominal adhesions. Over the course of your hospital stay, your abdominal pain resolved on its own with conservative measures, bowel rest, and IV fluids. Vomiting resolved on its own, and an NG tube has not required for decompression of the stomach. Initially, your white blood cell count was elevated at 26, but trended downward to normal (it is 7.3 on discharge). This elevated white blood cell count was likely due to stress demargination in the absence of infectious symptoms. Additionally, a nonspecific blood marker for inflammation within the body (CRP) has been trending down from 3.12 to 1.30 (normal range 0-0.5). Although it is still slightly elevated, given resolution of your abdominal symptoms, it is felt that you are safe to return home while maintaining a full liquid diet. It is important to maintain a full liquid diet for the next 1 to 2 days, and advance diet slowly as tolerated. Following for liquid diet, it is recommended that you maintain a low fiber diet until all symptoms fully resolve. Handouts were provided at discharge for the best foods to eat and avoid. It is okay to take ricj-kcv-mmpoisn remedies, such as famotidine (Pepcid) as needed for GI discomfort/upset stomach, or acetaminophen (Tylenol) as needed for pain. If you develop any new or worsening symptoms, such as fever, chills, body aches, severe abdominal pain, intractable nausea and vomiting, or if you have any new concerns please return to the emergency department immediately. It was a pleasure to take care of you. Please reach out any questions or concerns. Sincerely, The hospital medicine team at [facility] Pending Studies at Discharge: No Stand-Alone Forms: My [facility] Medications and DC Order Prescriptions: Continued Drysol 20 % solution 1 applic topical DAILY Qty: 37.5 5RF Rx Instructions: otc unable to verify Slynd 4 mg (28) tablet 1 tab PO QAM Qty: 84 4RF multivitamin Tablet 1 tab PO 3XWK Rx Instructions: otc unable to verify Discharge Orders: Discharge Order (Routine); Ordered 10/04/24 Ordered By: Juan Francisco Roblero/Other Patient Handouts: Low-Fiber Diet, Full Liquid Diet Dc Admission Data Admit Date/Time: 10/02/24 12:51 Attending Provider: Tim Lopez Admit Provider: Damien Polanco Primary Care Provider: Kaylah Villa Other Providers: Armen Stewart; Damien Polanco Other Interventions: Discharge Summary Assessment (RN) Last Done: 10/04/24 12:20 Hospital Stay Data Consultations 10/02/24 12:09 Consult General Surgery Stat 10/02/24 12:10 ED Decision to Admit Stat Diagnostic Imagining Performed 10/02/24 09:35 CT abd pelvis IV con only Stat Pending Results Patient Have Any Pending Studies at Discharge: No Discharge Instructions Given to Patient (Per Discharging Provider) You were hospitalized at [facility] on 10/02 for severe abdominal pain and vomiting. On arrival, imaging of your abdomen/pelvis revealed a small bowel obstruction. Given your history of small bowel obstructions/abdominal surgeries, it is likely that this was caused by abdominal adhesions. Over the course of your hospital stay, your abdominal pain resolved on its own with conservative measures, bowel rest, and IV fluids. Vomiting resolved on its own, and an NG tube has not required for decompression of the stomach. Initially, your white blood cell count was elevated at 26, but trended downward to normal (it is 7.3 on discharge). This elevated white blood cell count was likely due to stress demargination in the absence of infectious symptoms. Additionally, a nonspecific blood marker for inflammation within the body (CRP) has been trending down from 3.12 to 1.30 (normal range 0-0.5). Although it is still slightly elevated, given resolution of your abdominal symptoms, it is felt that you are safe to return home while maintaining a full liquid diet. It is important to maintain a full liquid diet for the next 1 to 2 days, and advance diet slowly as tolerated. Following for liquid diet, it is recommended that you maintain a low fiber diet until all symptoms fully resolve. Handouts were provided at discharge for the best foods to eat and avoid. It is okay to take fzuy-tdo-xuimwxe remedies, such as famotidine (Pepcid) as needed for GI discomfort/upset stomach, or acetaminophen (Tylenol) as needed for pain. If you develop any new or worsening symptoms, such as fever, chills, body aches, severe abdominal pain, intractable nausea and vomiting, or if you have any new concerns please return to the emergency department immediately. It was a pleasure to take care of you. Please reach out any questions or concerns. Sincerely, The hospital medicine team at [facility] Supervising Physician Co-Signing Physician Notes chart reviewed, case d/w P EDU Farah - as above Total Time Total Time Spent Total Time Spent (In Minutes): 25 [place] [address] IN/OBS DISCH 30 MIN/LESS Patient Type Established Medical Decision Making Low Complexity Diagnoses Small bowel obstruction K56.609 Nausea & vomiting R11.2
--- NOTE | 2024-10-04 14:13 | Surgery Progress Note ---
<Statement entered by Piyush Corbett DO - 10/04/24 14:36> I have seen and examined this patient this am and I agree with this plan Date of Service October 04, 2024 Assessment & Plan (1) Small bowel obstruction: Plan: Pt here w/ SBO She is passing flatus and having BMs Reports pain is much improved She is tolerating clears without n/v Okay to advance to fulls can continue this over the next day of so then move to low fiber She has had these before and knows how to manage them. given her SBO appears clinically resolved we will be okay with her going slow with diet and discharging to home we will sign off please call with any questions/concerns Admission and Anticipated Discharge Date Admission Date: October 02, 2024 Subjective Patient is feeling well. She denies pain, nausea. She is tolerating clears. She wants to go home Physical Exam Physical Exam: awake/alert Gastrointestinal (Abdomen): Percussion/Palpation: + abdomen tender (very mild discomfort in the lower abdomen) and abdomen soft Results & Data Vital Signs (Past 12 Hours) Vital Signs Temp Pulse Resp BP Pulse Ox O2 Del Method 10/04/24 12:20 98.2 F 72 18 127/78 96 10/04/24 08:07 98.2 F 72 18 127/78 96 Room Air PG Care Time/CCT Total # of Minutes Spent Total Time Spent with Patient: Total time spent is greater than 50% in coordination of care (as documented) at patient's floor/unit and/or counseling patient: Coding Level of Care Code 81430 SUB INP/OBS CARE 06/21MIN Diagnoses Small bowel obstruction K56.609
== END 2024-10-04 13:45 | disposition home or self-care (01) | DRG 390 ==
LOC: ED 08:45 → 3N 12:51 → SUATTDRO 12:51 → 3N 13:59